=== PATIENT | female | born 1945 | race Caucasian/White ===

== ENCOUNTER → 2019-01-09 | Outpatient (CLI) | payer OTHER ==
[2017-10-18 07:51] VITALS: BP 142/78
[~2019-01-09] MED LIST: DONE10TA7 PO; OMEP40CA45 PO; WARF-31 PO; WARF3TAB50 PO; [UNRECOGNIZED DRUG - REMARK] PO
--- NOTE | 2019-01-09 13:54 | CARD ---
MR#: [id number] Date of Study: 01/09/2019 Ordering Physician: MARY DONALDSON, Referring Physician: MARY DONALDSON, Tech: Nuha Jain APPROVED REPORT EXAM: Two-dimensional and M-mode echocardiogram with Doppler and color Doppler. Other Information Quality : AverageHR: 86bpm INDICATION PHTN 2D DIMENSIONS RVDd3.2 (2.9-3.5cm)Left Atrium(2D)3.7 (1.6-4.0cm) IVSd1.3 (0.7-1.1cm)Aortic Root(2D)2.3 (2.0-3.7cm) LVDd3.7 (3.9-5.9cm)LVOT Diameter1.8 (1.8-2.4cm) PWd0.8 (0.7-1.1cm)LVDs1.8 (2.5-4.0cm) FS (%) 51.2 %SV49.7 ml LVEF(%)83.1 (>50%) Aortic Valve AoV Peak Jeff.125.2cm/sAoV VTI22.5cm AO Peak GR.6.3mmHgLVOT Peak Jeff.117.2cm/s AO Mean GR.3mmHgAVA (VMAX)2.26cm2 Mitral Valve MV E Vriemmps83.9cm/sMV E Peak Gr.4mmHg MV DECEL TIME96nsXD A Wsrcteer18.4cm/s MV E Mean Gr.2mmHgE/A Ratio1.7 Pulmonary Valve PV Peak Fvugxhbl71.4cm/s Tricuspid Valve TR P. Ipmyfzdx573bd/sRAP EIZWVGFT0lzPw TR Peak Gr.82ypOwCRIB73btJu Pulmonary Vein S1 Otimdjdz05.0cm/sD2 Lcinenwn62.4cm/s LEFT VENTRICLE The left ventricle is normal size. There is borderline to mild septal left ventricular hypertrophy. T he left ventricular systolic function is normal. The Ejection Fraction is 65-70%. There is normal LV segmental wall motion. Transmitral Doppler flow pattern is Grade II-pseudonormal filling dynamics. RIGHT VENTRICLE The right ventricle is normal size. The right ventricular systolic function is normal. ATRIA The left atrium size is normal. The right atrium size is normal. The interatrial septum is intact wit h no evidence for an atrial septal defect or patent foramen ovale as noted on 2-D or Doppler imaging. AORTIC VALVE The aortic valve is thickened but opens well. Doppler and Color Flow revealed no significant aortic r egurgitation. There is no significant aortic valvular stenosis. MITRAL VALVE The mitral valve is thickened but opens well. There is no evidence of mitral valve prolapse. There is no mitral valve stenosis. Doppler and Color-flow revealed trace mitral regurgitation. TRICUSPID VALVE The tricuspid valve leaflets are thickened , but open well. Doppler and Color Flow revealed mild tric uspid regurgitation. There is no tricuspid valve stenosis. PULMONIC VALVE The pulmonic valve is not well visualized. Doppler and Color Flow revealed trace to mild pulmonic skyler vular regurgitation. GREAT VESSELS The aortic root is normal in size. The ascending aorta is normal in size. The IVC is normal in size a nd collapses >50% with inspiration. PERICARDIAL EFFUSION There is no pleural effusion. There is no evidence of significant pericardial effusion. Critical Notification Critical Value: No <Conclusion> The left ventricular systolic function is normal. The Ejection Fraction is 65-70%. There is normal LV segmental wall motion. Transmitral Doppler flow pattern is Grade II-pseudonormal filling dynamics. Trace mitral regurgitation. Mild tricuspid regurgitation. There is no evidence of significant pericardial effusion. Signed by : El Morgan, Electronically Approved : 01/09/2019 13:53:53
== END | disposition home or self-care (01) ==
LOC: ECHO 12:30
PROVIDERS: ATTEND Internal Medicine Cardiovascular Disease
DX: I08.8 Other rheumatic multiple valve diseases (principal); I27.20 Pulmonary hypertension, unspecified
CPT/HCPCS: 93306

== ENCOUNTER 2019-08-06 10:32 | Emergency (ER) | payer OTHER ==
[~2019-08-06] VITALS: Ht 157.5 cm; Wt 66.8 kg
[2019-08-06] MEDS ORDERED: ONDANSETRON PF 4 MG/2 ML VIAL. IM ONE (11:00)
[2019-08-06] MEDS ORDERED: IV NORMAL SALINE 1000ML BAG 1,000 ML IV ONE (11:00)
--- NOTE | 2019-08-06 11:03 | EKG ---
[facility] [address] [place] [address] Test Date: 2019-08-06 Test Time: 10:52:32 Pat Name: FREDRICK BENTON Department: Room: Gender: F Bundles Hanger: : 1945 Requested By: SHIRA TOLEDO Order Number: [id number] Reading MD: Myles Khan Measurements Intervals Saxis Rate: 66 P: 57 [place]: 130 QRS: 36 QRSD: 78 T: 29 QT: 412 QTc: 434 Interpretive Statements SINUS RHYTHM Electronically Signed On 08-07-2019 16:40:15 CDT by Myles Khan
--- NOTE | 2019-08-06 11:04 | PHYS DOC ---
Past Medical History Past Medical History: A-Fib, Diabetes-Type I, Hypertension Additional Past Medical Histor: BLOOD CLOTS- PE, urinary incontinence Past Surgical History: Tonsillectomy Additional Past Surgical Histo: HEMORRHOIDS, TUBAL PREG, ABDOMINAL HERNIA Smoking Status: Never Smoker Alcohol Use: None Drug Use: None General Adult EDM: Chief Complaint: MULTIPLE COMPLAINTS HPI: HPI: Patient is a 74 year old female presents with history of cold sweats, decreased urination, generalized weakness and nausea that started this morning. Patient is concerned that her blood glucose might be abnormal but when she had it checked it was 128 at home. Patient does report taking her typical metformin this morning. Denies known sick contacts. Denies fever or chills. Denies sh ortness of air or chest pain. Denies dysuria. Review of Systems: Review of Systems: Constitutional: Denies fever or chills; reports generalized malaise Eyes: Denies redness or eye pain HENT: Denies nasal congestion or sore throat Respiratory: Denies cough or shortness of breath Cardiovascular: Denies chest pain or palpitations GI: Denies abdominal pain or vomiting; reports nausea : Denies dysuria or hematuria; reports decreased urination Musculoskeletal: Denies back pain or joint pain Integument: Denies rash or skin lesions; reports cold sweats Neurologic: Denies headache, focal weakness or sensory changes; reports generalized weakness Complete systems were reviewed and found to be within normal limits, except as documented in this note. Current Medications: Current Medications Medications (Trade) Dose Ordered Sig/[facility] Start Time Stop Time Status Last Admin Dose Admin Ondansetron HCl (Zofran) 4 mg 1X ONCE 08/06/19 11:00 08/06/19 11:01 DC Sodium Chloride 1,000 ml @ 1,000 mls/hr 1X ONCE 08/06/19 11:00 08/06/19 11:59 Allergies: Allergies: Allergies Coded Allergies Type Severity Reaction Last Updated Verified Penicillins Allergy Intermediate Rash 10/16/17 Yes Physical Exam: PE: Constitutional: Well developed, well nourished, no acute distress, non-toxic appearance HENT: Normocephalic, atraumatic Eyes: Conjunctiva normal, no discharge Neck: Normal range of motion, no tenderness, supple Cardiovascular: Heart rate normal, regular rhythm Lungs & Thorax: Bilateral breath sounds clear to auscultation, no wheezing Abdomen: Soft, no tenderness, no guarding/rebound tenderness/distention Skin: Warm, dry, no erythema, no rash Back: No tenderness, no CVA tenderness Extremities: No tenderness, ROM intact, no edema Neurologic: Alert and oriented X 3, normal motor function, normal sensory function, no focal deficits noted Psychologic: Affect normal, judgment normal Current Patient Data: Vital Signs: Vital Signs Date Time Temp Pulse Resp B/P (MAP) Pulse Ox O2 Delivery O2 Flow Rate FiO2 08/06/19 10:51 97.5 65 20 122/60 (80) 100 Room Air 97.5 EKG: EKG: @ 1052 NSR at 66bpm, NO ST elevation, QRS 78ms, QT/QTc 412/434ms, Q wave in III Radiology/Procedures: Radiology/Procedures: [] Course & Med Decision Making: Course & Med Decision Making Pertinent Lab studies reviewed. (See chart for details) Patient presents with some generalized weakness and associated nausea and decreased urination. Patient was concerned her blood sugar might be the issue however upon checking it at home it was 128. Bladder scan was obtained without significant amount of urine noted. UA without signs of infection. Labs obtained and posted to chart. Hypomagnesemia addressed. IV fluid hydration provided. EKG stable. Nausea addressed. Patient reports interval improvement of symptoms. Patient stable for discharge with outpatient follow-up with PCP. Discussed findings and plan with patient and family, who acknowledge understanding and agreement. Effie Disclaimer: Effie Disclaimer: This electronic medical record was generated, in whole or in part, using a voice recognition dictation system. Departure Departure Impression: Primary Impression: Generalized weakness Additional Impressions: Nausea Hypomagnesemia Disposition: 01 HOME, SELF-CARE Condition: STABLE Referrals: BLAKE SWEENEY D.O. (PCP) Patient Instructions: Hypomagnesemia, Nausea, Adult, Vayc-xo-Gqoa, Weakness, Cicb-my-Naav Additional Instructions: Your INR was theraputic today at 2.8 Scripts Ondansetron (ONDANSETRON ODT) 4 Mg Tab.rapdis 1 TAB PO PRN Q6-8HRS PRN for NAUSEA, #16 TAB Prov: SHIRA TOELDO Dottie GAONA 08/06/19 Justicifation of Admission Dx: Justifications for Admission: Justification of Admission Dx: N/A NIHSS Stroke Scale NIH Stroke Scale: NIH Stroke Scale Response (Comments) Value Level of Consciousness: 0 Alert/Responsive 0 LOC Questions: 0 Answers both correctly 0 LOC Commands: 0 Performs both tasks 0 Best Gaze: 0 Normal 0 Visual: 0 No visual loss 0 Facial Palsy: 0 Normal, symmetrical 0 Motor - Left Arm 0 No drift 0 Motor - Right Arm 0 No drift 0 Motor - Left Leg 0 No drift 0 Motor: Right Leg 0 No drift 0 Limb Ataxia: 0 Absent 0 Sensory: 0 No loss 0 Best Language: 0 Normal 0 Dysathria: 0 Normal 0 Extinction and Inattention: 0 Normal 0 Total 0 TOLEDO,SHIRA Sinclair DO Aug 06, 2019 11:04
[2019-08-06 11:10] LABS: BASO # 0.1 x10^3/uL (0.0-0.2); BASO % 1 % (0-3); EOS # 0.1 x10^3/uL (0.0-0.7); EOS % 1 % (0-3); HEMATOCRIT 41.5 % (36.0-47.0); HEMOGLOBIN 13.7 g/dL (12.0-15.5); LYMPH # 1.5 x10^3/uL (1.0-4.8); LYMPH % 12 % (24-48); MEAN CORPUSCULAR HEMOGLOBIN 30 pg (25-35); MEAN CORPUSCULAR HGB CONC 33 g/dL (31-37); MEAN CORPUSCULAR VOLUME 89 fL (79-100); MONO # 0.7 x10^3/uL (0.0-1.1); MONO % 6 % (0-9); NEUT # 9.8 x10^3/uL (1.8-7.7); NEUT % 80 % (31-73); PLATELET COUNT 274 x10^3/uL (140-400); RED BLOOD COUNT 4.65 x10^6/uL (3.50-5.40); RED CELL DISTRIBUTION WIDTH 14.9 % (11.5-14.5); WHITE BLOOD COUNT 12.2 x10^3/uL (4.0-11.0)
[2019-08-06 11:12] LABS: BILIRUBIN,URINE NEGATIVE (NEG); CLARITY,URINE CLEAR; COLOR,URINE YELLOW; NITRITE,URINE NEGATIVE (NEG); PROTEIN,URINE NEGATIVE (NEG-TRACE); UROBILINOGEN,URINE 0.2 mg/dL (0.2 mg/dL)
[2019-08-06 11:20] LABS: PROTHROMBIN TIME PATIENT 29.1 SEC (11.7-14.0)
[2019-08-06 11:22] LABS: CREATININE 1.1 mg/dL (0.6-1.0); GFR 48.7; POTASSIUM 3.6 mmol/L (3.5-5.1)
[2019-08-06 11:25] LABS: BACTERIA,URINE 0 /HPF (0-FEW); HYALINE CASTS, URINE OCCASIONAL /HPF; RBC,URINE 0 /HPF (0-2); WBC,URINE OCC /HPF (0-4)
[2019-08-06 11:28] LABS: ALBUMIN 3.7 g/dL (3.4-5.0); ALBUMIN/GLOBULIN RATIO 1.2 (1.0-1.7); MAGNESIUM 1.6 mg/dL (1.8-2.4); TOTAL BILIRUBIN 0.4 mg/dL (0.2-1.0); TOTAL PROTEIN 6.8 g/dL (6.4-8.2)
[2019-08-06 12:44] VITALS: BP 123/70
[2019-08-06] MEDS ORDERED: ONDA4TAB12 PO (12:47)
[2019-08-06] MEDS ORDERED: MAGNESIUM CHLORIDE ER 64 MG TABLET.ER PO ONE (13:30)
== END 2019-08-06 12:55 | disposition home or self-care (01) ==
LOC: ER 10:32
DX: E83.42 Hypomagnesemia (principal); R11.0 Nausea; R53.1 Weakness; E10.9 Type 1 diabetes mellitus without complications; Z90.89 Acquired absence of other organs; Z98.890 Other specified postprocedural states
CPT/HCPCS: 36415; 80053; 81001; 82553; 83605; 83690; 83735; 84484; 85025; 85610; 85730; 93005; 96372; 99285; J2405; J7030

== ENCOUNTER 2019-08-29 09:21 | Emergency (ER) | payer OTHER ==
[~2019-08-29] VITALS: Ht 154.9 cm; Wt 66.6 kg
[~2019-08-29 09:21] MED LIST changes: +ONDA4TAB12 PO
[2019-08-29 09:27] VITALS: BP 126/75
[2019-08-29] MEDS ORDERED: CEPH-264 PO (10:15)
[2019-08-29] MEDS ORDERED: BACI3.5O8 OS (10:15)
--- NOTE | 2019-08-29 10:17 | PHYS DOC ---
Past Medical History Past Medical History: A-Fib, Diabetes-Type II, Hypertension, Other Additional Past Medical Histor: BLOOD CLOTS- PE, urinary incontinence Past Surgical History: Tonsillectomy, Other Additional Past Surgical Histo: HEMORRHOIDS, TUBAL PREG, ABDOMINAL HERNIA Smoking Status: Never Smoker Alcohol Use: None Drug Use: None General Adult EDM: Chief Complaint: INSECT BITE HPI: HPI: Patient is a 74 year old female who presents with left ankle rash. Patient states that she believes she got bitten by a spider 6 days ago. She noticed on Saturday morning that she had a small nickel sized area of erythema with a black center. This is progressively gotten bigger. She has some pain around it. She does not have any swelling or itching. She saw her primary care doctor yesterday who put her on doxycycline and told her to come to the emergency room if he got any bigger. She noticed this morning that it was bigger so they came here to the emergency room. She has not noticed any bruising, altered mental status, abdominal pain, sweating, spasms. She got a tetanus yesterday. Review of Systems: Review of Systems: General: Denies fever, chills, sweats. Reports fatigue Eyes: Denies drainage, blurred vision, eye redness HENT: Denies rhinorrhea, sore throat, earache Respiratory: Denies cough, shortness of breath, wheezing Cardiac: Denies edema, palpitations, chest pain GI: Denies abdominal pain, Nausea, vomiting MSK: Denies back pain, neck pain Skin: Denies jaundice reports rash Neuro: Denies headache, dizziness Psychiatric: Denies SI/HI Heart Score: Risk Factors: Risk Factors: DM, Current or recent (<one month) smoker, HTN, HLP, family history of CAD, obesity. Risk Scores: Score 0 - 3: 2.5% MACE over next 6 weeks - Discharge Home Score 4 - 6: 20.3% MACE over next 6 weeks - Admit for Clinical Observation Score 7 - 10: 72.7% MACE over next 6 weeks - Early Invasive Strategies Allergies: Allergies: Allergies Coded Allergies Type Severity Reaction Last Updated Verified Penicillins Allergy Intermediate Rash 10/16/17 Yes Milk Containing Products Allergy Unknown UNKNOWN 08/29/19 Yes Physical Exam: PE: General: Awake, alert, NAD. Well Nourished, well hydrated. Cooperative HEENT: Atraumatic, EOMI, PERRL, airway patent, moist oral mucosa Neck: Supple, trachea midline Respiratory: CTA bilaterally, normal effort, no wheezing/crackles CV: RRR, no murmur, cap refill <2 GI: Soft, nondistended, nontender, no masses MSK: No obvious deformities Skin: Warm, dry. 4x5 cm area of erythema with blanching, no swelling, central area scabbed over, no signs of necrosis, no streaking Neuro: A&O x3, speech NL, sensory and motor grossly intact, no focal deficits Psych: Normal affect, normal mood, not suicidal or homicidal Current Patient Data: Vital Signs: Vital Signs Date Time Temp Pulse Resp B/P (MAP) Pulse Ox O2 Delivery O2 Flow Rate FiO2 08/29/19 09:27 98.4 103 19 126/75 (92) 98 Room Air 98.4 EKG: EKG: [] Radiology/Procedures: Radiology/Procedures: [] Course & Med Decision Making: Course & Med Decision Making Pertinent Labs and Imaging studies reviewed. (See chart for details) Patient is 74-year-old female who presents to the emergency room with a possible spider bite. Patient does have an area that looks like the start of cellulitis. I discussed with her that she may have some darkening of the area and what is concerning for necrosis. At this time she does not appear to have any necrosis or systemic symptoms that are suggestive of a poisonous spider bite. She does not need a systemic work-up at this time as it is been almost a week and she does not have any concerning symptoms. Will add Keflex and bacitracin cream. Patient's test results and vitals while in the ED were fully reviewed and discussed with the patient. Patient is stable and at this time does not need admission to the hospital. We have discussed strict return precautions and the importance of following up with their Primary Care Physician. Patient stated understanding and was given an opportunity to ask any questions. Patient is in agreement with plan. Reeseon Disclaimer: Effie Disclaimer: This electronic medical record was generated, in whole or in part, using a voice recognition dictation system. Departure Departure Impression: Primary Impression: Spider bite Additional Impression: Cellulitis Disposition: HOME, SELF-CARE Condition: GOOD Referrals: BLAKE SWEENEY D.O. (PCP) Patient Instructions: Spider Bite, Goew-yc-Uore Scripts Cephalexin (KEFLEX) 500 Mg Capsule 1 CAP PO Q8HRS, #21 CAP 0 Refills Prov: SANDIP DO MD 08/29/19 Bacitracin (BACITRACIN) 3.5 Gm Oint...g. 1 DIDI OS TID for 7 Days, #3.5 GM Prov: SANDIP DO MD 08/29/19 Justicifation of Admission Dx: Justifications for Admission: Justification of Admission Dx: No SANDIP DO MD Aug 29, 2019 10:17
== END 2019-08-29 10:35 | disposition home or self-care (01) ==
LOC: ER 09:21
DX: S90.562A Insect bite (nonvenomous), left ankle, initial encounter (principal); L03.116 Cellulitis of left lower limb; I48.91 Unspecified atrial fibrillation; E11.9 Type 2 diabetes mellitus without complications; I10 Essential (primary) hypertension; Z88.0 Allergy status to penicillin; Z91.011 Allergy to milk products; W57.XXXA Bitten or stung by nonvenomous insect and other nonvenomous arthropods, initial encounter; Y93.89 Activity, other specified; Y92.89 Other specified places as the place of occurrence of the external cause; Y99.8 Other external cause status
CPT/HCPCS: 99284

== ENCOUNTER → 2019-12-28 | Outpatient (CLI) | payer OTHER ==
[~2019-12-28] MED LIST changes: +BACI3.5O8 OS; +CEPH-264 PO
--- NOTE | 2019-12-28 08:20 | RAD ---
EXAM: US abdomen limited DATE: 12/28/2019 7:15 AM COMPARISON: None INDICATION: Mass lesion, characterize and localize Reason: ABDOMINAL WALL LUMP TECHNIQUE: Longitudinal and transverse imaging with intermittent Doppler sampling completed with attention to anterior abdominal wall FINDINGS/ IMPRESSION: 1. 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 If this lesion demonstrates interval growth or becomes symptomatic, further evaluation with MRI can be performed to exclude other underlying or aggressive solid mass including atypical lipomatous tumor/well-differentiated liposarcoma. 2. No other subcutaneous mass is identified corresponding to patient's palpable sensation. Electronically signed by: Cole Rutherford MD (12/28/2019 8:17 AM) ANTONIA
== END ==
LOC: US 06:48
PROVIDERS: ATTEND Nurse Practitioner Family
DX: R22.9 Localized swelling, mass and lump, unspecified (principal)
CPT/HCPCS: 76881

== ENCOUNTER → 2020-06-03 | Outpatient (CLI) | payer OTHER ==
--- NOTE | 2020-06-06 15:33 | CARD ---
MR#: [id number] Date of Study: 06/03/2020 Ordering Physician: BACILIO DONALDSON, Referring Physician: BACILIO DONALDSON, Tech: Michelle Leblanc [facility] APPROVED REPORT EXAM: Two-dimensional and M-mode echocardiogram with Doppler and color Doppler. Other Information Quality : GoodHR: 79bpm Rhythm : NSR INDICATION Atrial Fibrillation 2D DIMENSIONS RVDd3.1 (2.9-3.5cm)Left Atrium(2D)4.4 (1.6-4.0cm) IVSd0.9 (0.7-1.1cm)Aortic Root(2D)3.1 (2.0-3.7cm) LVDd3.7 (3.9-5.9cm)LVOT Diameter1.9 (1.8-2.4cm) PWd1.0 (0.7-1.1cm)LVDs2.1 (2.5-4.0cm) FS (%) 42.3 %SV43.5 ml LVEF(%)74.2 (>50%) Aortic Valve AoV Peak Jeff.117.6cm/sAoV VTI26.4cm AO Peak GR.5.5mmHgLVOT Peak Jeff.109.4cm/s AO Mean GR.2mmHgAVA (VMAX)2.70cm2 Mitral Valve MV E Nxpflpst514.3cm/sMV DECEL HYLA622nf MV A Sgtvrgbm91.8cm/sE/A Ratio1.6 Pulmonary Valve PV Peak Kgjuxaba18.0cm/s Tricuspid Valve TR P. Fsfdcejy299gn/sTR Peak Gr.28mmHg LEFT VENTRICLE The left ventricle is normal size. There is normal left ventricular wall thickness. The left ventricu lar systolic function is normal and the ejection fraction is within normal range. Estimated ejection fraction 60%. There is normal LV segmental wall motion. Tissue Doppler imaging reveals mild left vent ricular diastolic dysfunction. RIGHT VENTRICLE The right ventricle is normal size. There is normal right ventricular wall thickness. The right ventr icular systolic function is normal. ATRIA The left atrium is mildly dilated. The right atrium size is normal. There is small atrial level defec t with bidirectional shunting AORTIC VALVE The aortic valve is normal in structure and function. Doppler and Color Flow revealed no significant aortic regurgitation. There is no significant aortic valvular stenosis. MITRAL VALVE The mitral valve is normal in structure and function. There is no evidence of mitral valve prolapse. There is no mitral valve stenosis. Doppler and Color-flow revealed mild mitral regurgitation. TRICUSPID VALVE The tricuspid valve is normal in structure and function. Doppler and Color Flow revealed mild tricusp id regurgitation. There is no tricuspid valve stenosis. PULMONIC VALVE The pulmonary valve is normal in structure and function. Doppler and Color Flow revealed mild pulmoni c valvular regurgitation. GREAT VESSELS The aortic root is normal in size. The ascending aorta is normal in size. The IVC is normal in size a nd collapses >50% with inspiration. PERICARDIAL EFFUSION There is no evidence of significant pericardial effusion. Critical Notification Critical Value: No <Conclusion> The left ventricular systolic function is normal and the ejection fraction is within normal range. E stimated ejection fraction 60%. There is normal LV segmental wall motion. There is small atrial level defect with bidirectional shunting Signed by : Bacilio Donaldson, Electronically Approved : 06/06/2020 15:32:58
== END ==
LOC: ECHO 13:36
PROVIDERS: ATTEND Internal Medicine Cardiovascular Disease
DX: I08.8 Other rheumatic multiple valve diseases (principal); I27.0 Primary pulmonary hypertension
CPT/HCPCS: 93306

== ENCOUNTER 2020-08-15 10:44 | Emergency (ER) | payer OTHER ==
[~2020-08-15] VITALS: Ht 152.4 cm; Wt 68.0 kg
[~2020-08-15 10:44] MED LIST changes: -OMEP40CA45 PO; +OMEP40CA7 PO
[2020-08-15 11:48] VITALS: BP 123/74
[2020-08-15] MEDS ORDERED: CLIN300C9 PO (12:57)
[2020-08-15] MEDS ORDERED: PRED50TA PO (12:57)
--- NOTE | 2020-08-15 12:57 | ED.ADGEN ---
Past Medical History Past Medical History: A-Fib, Diabetes-Type II, High Cholesterol, Hypertension, Other Additional Past Medical Histor: BLOOD CLOTS- PE, urinary incontinence Past Surgical History: Hysterectomy, Tonsillectomy, Other Additional Past Surgical Histo: HEMORRHOIDS, TUBAL PREG, ABDOMINAL HERNIA Smoking Status: Never Smoker Alcohol Use: None Drug Use: None General Adult EDM: Chief Complaint: SKIN RASH/ABSCESS HPI: HPI: Patient is a 75-year-old female who presents to the emergency room complaining of rash to her right arm, neck, face. Patient states that she was out working in the garden earlier this weekend and thinks that she either got stung or poked by something in the garden. She states that she developed the scabbed lesion at that then moved up her arm. She states is now on her neck and face. She states it is itchy and painful. She denies any associated symptoms. She has not had any kind of fever, chills, sweats, nausea, vomiting, abdominal pain, headache, visual changes. She is never had a rash like this previously. Her does not have any similar lesions. Review of Systems: Review of Systems: Complete ROS is negative unless otherwise documented in HPI Allergies: Allergies: Allergies Coded Allergies Type Severity Reaction Last Updated Verified Penicillins Allergy Severe "passed out" 08/15/20 Yes Milk Containing Products Allergy Unknown UNKNOWN 08/15/20 Yes Physical Exam: PE: General: Awake, alert, NAD. Well Nourished, well hydrated. Cooperative HEENT: Atraumatic, EOMI, PERRL, airway patent, moist oral mucosa Neck: Supple, trachea midline Respiratory: CTA bilaterally, normal effort, no wheezing/crackles CV: RRR, no murmur, cap refill <2 GI: Soft, nondistended, nontender, no masses MSK: No obvious deformities Skin: Warm, dry. Several erythematous raised lesions of various sizes some with scabbing up the right arm, left neck, right face. No vesicles. Neuro: A&O x3, speech NL, sensory and motor grossly intact, no focal deficits Psych: Normal affect, normal mood, not suicidal or homicidal Current Patient Data: Vital Signs: Vital Signs Date Time Temp Pulse Resp B/P (MAP) Pulse Ox O2 Delivery O2 Flow Rate FiO2 08/15/20 11:48 98.8 83 18 123/74 (90) 97 Room Air 98.8 EKG: EKG: [] Heart Score: C/O Chest Pain: N/A Risk Factors: Risk Factors: DM, Current or recent (<one month) smoker, HTN, HLP, family history of CAD, obesity. Risk Scores: Score 0 - 3: 2.5% MACE over next 6 weeks - Discharge Home Score 4 - 6: 20.3% MACE over next 6 weeks - Admit for Clinical Observation Score 7 - 10: 72.7% MACE over next 6 weeks - Early Invasive Strategies Radiology/Procedures: Radiology/Procedures: [] Course & Med Decision Making: Course & Med Decision Making Pertinent Labs and Imaging studies reviewed. (See chart for details) Patient is a 75-year-old female who presents to the emergency room with a rash. It appears patient has a contact dermatitis. Rash does not follow a lymphatic pattern and does not have any indurated lesions there would be suggestive of Cisneros's disease. We will place patient on steroids and antibiotics for dermat itis with associated cellulitis. We discussed that if she has any worsening of her rash or develops any systemic symptoms she should return to the emergency room. Patient's test results and vitals while in the ED were fully reviewed and discussed with the patient. Patient is stable and at this time does not need admission to the hospital. We have discussed strict return precautions and the importance of following up with their Primary Care Physician. Patient stated understanding and was given an opportunity to ask any questions. Patient is in agreement with plan. Effie Disclaimer: Effie Disclaimer: This electronic medical record was generated, in whole or in part, using a voice recognition dictation system. Departure Departure Impression: Primary Impression: Dermatitis Additional Impression: Cellulitis Disposition: HOME / SELF CARE / HOMELESS Condition: STABLE Referrals: BLAKE SWEENEY D.O. (PCP) Patient Instructions: Cellulitis, Contact Dermatitis Scripts Clindamycin Hcl (CLINDAMYCIN HCL) 300 Mg Capsule 1 CAP PO TID, #21 CAP Prov: SANDIP DO MD 08/15/20 Prednisone (PREDNISONE) 50 Mg Tablet 1 TAB PO DAILY, #5 TAB Prov: SANDIP DO MD 08/15/20 Problem Qualifiers SANDIP DO MD Aug 15, 2020 12:57
== END 2020-08-15 13:10 | disposition home or self-care (01) ==
LOC: ER 10:44
DX: L25.9 Unspecified contact dermatitis, unspecified cause (principal); L03.113 Cellulitis of right upper limb; L03.221 Cellulitis of neck; L03.211 Cellulitis of face; E78.00 Pure hypercholesterolemia, unspecified; I48.91 Unspecified atrial fibrillation; E11.9 Type 2 diabetes mellitus without complications; I10 Essential (primary) hypertension; Z88.0 Allergy status to penicillin; Z91.011 Allergy to milk products
CPT/HCPCS: 99284